=== PATIENT | female | born 1990 | race Caucasian/White ===

== ENCOUNTER → 2024-09-11 15:58 | Outpatient (CLI) | payer OTHER, SELFPAY | PROVIDERS: Referring Provider Student in an Organized Health Care Education/Training Program; Visit Provider Student in an Organized Health Care Education/Training Program | DX: N97.0 Female infertility associated with anovulation (principal) | CPT/HCPCS: 36415; 84144 ==

== ENCOUNTER → 2024-11-17 14:07 | Outpatient (CLI) | payer OTHER, SELFPAY ==
[2024-11-17 15:53] LABS: Progesterone, Total 4.19 ng/mL
== END ==
PROVIDERS: Referring Provider Student in an Organized Health Care Education/Training Program; Visit Provider Student in an Organized Health Care Education/Training Program
DX: N97.0 Female infertility associated with anovulation (principal)
CPT/HCPCS: 36415; 84144

== ENCOUNTER → 2024-12-19 13:02 | Outpatient (CLI) | payer OTHER, SELFPAY ==
[2024-12-19 13:30] LABS: Hemoglobin A1C% w Est Avg Glu 5.3 % (4.0-6.0)
[2024-12-19 14:59] LABS: Progesterone, Total 0.50 ng/mL
== END ==
PROVIDERS: Referring Provider Student in an Organized Health Care Education/Training Program; Visit Provider Student in an Organized Health Care Education/Training Program
DX: N97.0 Female infertility associated with anovulation (principal)
CPT/HCPCS: 36415; 83036; 84144

== ENCOUNTER → 2025-03-05 11:51 | Outpatient (CLI) | payer OTHER, SELFPAY ==
[2025-03-05 15:10] LABS: Progesterone, Total 8.44 ng/mL
== END ==
PROVIDERS: Referring Provider Student in an Organized Health Care Education/Training Program; Visit Provider Student in an Organized Health Care Education/Training Program
DX: E28.2 Polycystic ovarian syndrome (principal); N97.0 Female infertility associated with anovulation
CPT/HCPCS: 36415; 84144

== ENCOUNTER → 2025-03-06 11:41 | Outpatient (CLI) | payer OTHER, SELFPAY ==
[2025-03-06 13:53] LABS: HCG Quantitative /Beta subunit 13.59 mIU/mL
== END ==
PROVIDERS: Referring Provider Student in an Organized Health Care Education/Training Program; Visit Provider Student in an Organized Health Care Education/Training Program
DX: N97.0 Female infertility associated with anovulation (principal)
CPT/HCPCS: 36415; 84702

== ENCOUNTER → 2025-03-08 14:10 | Outpatient (CLI) | payer OTHER, SELFPAY ==
[2025-03-08 15:39] LABS: HCG Quantitative /Beta subunit 39.74 mIU/mL
== END ==
PROVIDERS: Referring Provider Obstetrics & Gynecology; Visit Provider Obstetrics & Gynecology
DX: N92.6 Irregular menstruation, unspecified (principal); R79.89 Other specified abnormal findings of blood chemistry
CPT/HCPCS: 36415; 84702

== ENCOUNTER → 2025-03-19 11:09 | Outpatient (CLI) | payer OTHER, SELFPAY ==
[2025-03-19 12:37] LABS: Add Manual Diff / Slide Review NO; Hematocrit 36.7 % (36-46); Hemoglobin 12.6 g/dL (12.0-16.0); Lymphocytes Absolute Auto 1800 /uL (1100-4500); Mean Corpuscular HGB Conc 34.5 % (30-36); Mean Corpuscular Hemoglobin 31.3 PG (26-34); Mean Corpuscular Volume 91.0 fL (80-100); Platelet Count 287 X10^3/uL (150-400)
[2025-03-19 14:29] LABS: Progesterone, Total 25.60 ng/mL
[2025-03-20 15:27] LABS: Hepatitis B Surface Antigen NEGATIVE s/c (NEGATIVE)
[2025-03-20 15:35] LABS: HIV 1 & 2 Ab/Ag 4th Gen Combo NEGATIVE (NEGATIVE); Hep C Virus Ab w/Reflex Quant NEGATIVE s/c (NEGATIVE)
== END ==
PROVIDERS: Visit Provider Obstetrics & Gynecology
DX: O09.899 Supervision of other high risk pregnancies, unspecified trimester (principal); N96 Recurrent pregnancy loss
CPT/HCPCS: 36415; 80055; 84144; 86787; 86803; 86850; 86900; 86901; 87077; 87086; 87389

== ENCOUNTER → 2025-04-10 10:41 | Outpatient (CLI) | payer OTHER, SELFPAY ==
[2025-04-10 14:32] LABS: Urine N gonorrhoeae NOT DETECTED
[2025-04-10 14:33] LABS: Urine Chlamydia NOT DETECTED
== END ==
PROVIDERS: Visit Provider Obstetrics & Gynecology
DX: Z11.3 Encounter for screening for infections with a predominantly sexual mode of transmission (principal)
CPT/HCPCS: 87491; 87591

== ENCOUNTER → 2025-04-23 10:15 | Outpatient (CLI) | payer OTHER, SELFPAY ==
[2025-04-23 11:20] LABS: Natera Collection Specimen Collected
== END ==
PROVIDERS: Referring Provider Obstetrics & Gynecology; Visit Provider Obstetrics & Gynecology
DX: O09.899 Supervision of other high risk pregnancies, unspecified trimester (principal)
CPT/HCPCS: 36415